=== PATIENT | male | born 1975 | race Caucasian/White ===

== ENCOUNTER 2019-09-14 05:45 | Emergency (ER) | payer OTHER, SELFPAY ==
[~2019-09-14] VITALS: Ht 185.4 cm; Wt 104.1 kg
[~2019-09-14 05:45] MED LIST: ATOR40TA75 PO; BRIL90TA PO; CARV6.25 PO; LOSA50TA88 PO; NITR0.4D6 TD
[2019-09-14] MEDS ORDERED: FLUTISP (06:00)
[2019-09-14] MEDS ORDERED: ALL10TAB29 (06:00)
[2019-09-14] MEDS ORDERED: METH36TA5 (06:00)
[2019-09-14] MEDS ORDERED: DOXY100C37 (06:00)
[2019-09-14] MEDS ORDERED: NITROGLYCERIN 0.4 MG SUBL TABLET SL STA (06:20)
[2019-09-14 06:28] LABS: BASO # 0.1 10^3/uL (0.0-0.2); BASO % 0.9 % (0.0-1.0); EOS # 0.3 10^3/uL (0.0-0.5); EOS % 4.3 % (0.0-3.0); HEMATOCRIT 41.4 % (42.0-52.0); HEMOGLOBIN 14.1 g/dl (13.5-17.5); LYMPH # 1.7 10^3/uL (1.5-5.0); LYMPH % 25.4 % (24.0-44.0); MEAN CORPUSCULAR HEMOGLOBIN 29.6 pg (27.0-33.0); MEAN CORPUSCULAR HGB CONC 34.1 g/dl (32.0-36.5); MEAN CORPUSCULAR VOLUME 86.8 fl (80.0-96.0); MONO # 0.6 10^3/uL (0.0-0.8); MONO % 8.9 % (0.0-5.0); NEUTROPHILS # 3.9 10^3/uL (1.5-8.5); PLATELET COUNT, AUTOMATED 174 10^3/uL (150-450); RED BLOOD COUNT 4.77 10^6/uL (4.30-6.10); WHITE BLOOD COUNT 6.5 10^3/uL (4.0-10.0)
[2019-09-14] MEDS ORDERED: NITROGLYCERIN 2% OINT 1 GM *U/D* PKT TOP ONE (06:30)
[2019-09-14] MEDS ORDERED: TICAGRELOR 90 MG TABLET (BRILINTA) PO ONE (06:30)
[2019-09-14] MEDS ORDERED: ASPIRIN 81 MG CHEW TABLET PO ONE (06:30)
[2019-09-14 06:33] VITALS: BP 137/91
[2019-09-14 06:42] LABS: INR 0.97; PROTHROMBIN TIME 12.6 SECONDS (11.8-14.0)
[2019-09-14 07:04] LABS: ALBUMIN 3.5 GM/DL (3.2-5.2); ALT/SGPT 24 U/L (12-78); BILIRUBIN,DIRECT 0.2 MG/DL (0.0-0.2); BILIRUBIN,TOTAL 1.2 MG/DL (0.2-1.0); CK-MB VALUE MASS < 1.0 NG/ML (<3.6); CPK CREATINE PHOSPHOKINASE 66 U/L (39-308); LIPASE 87 U/L (73-393); MB/CK RELATIVE INDEX 1.52 (< OR =4); TOTAL PROTEIN 6.3 GM/DL (6.4-8.2); TROPONIN I < 0.02 NG/ML (< 0.10)
[2019-09-14] MEDS ORDERED: propofoL 1,000 MG in IV 1 EA IV SCH (07:23)
[2019-09-14] MEDS ORDERED: propofoL 200 MG/20 ML VIAL IV PRN (07:30)
[2019-09-14] MEDS ORDERED: ETOMIDATE INJ 20MG/10ML VIAL IV ONE (07:30)
[2019-09-14] MEDS ORDERED: SUCCINYLCHOLINE INJ 200 MG/10 ML VIAL (J0330) IV ONE (07:30)
--- NOTE | 2019-09-14 07:30 | REP ---
Clinical: Chest pain . Comparison: 07/29/2017 . Findings: The mediastinum and cardiac silhouette are stable and within normal limits for portable technique. The lung f[place] are clear without acute consolidation, effusion, or pneumothorax. Skeletal structures are intact. Impression: No acute cardiopulmonary process appreciated. Electronically Signed by Ye Sahu MD 09/14/2019 07:21 A
[2019-09-14 11:15] VITALS: BP 113/71
[2019-09-14 11:20] LABS: CK-MB VALUE MASS < 1.0 NG/ML (<3.6); CPK CREATINE PHOSPHOKINASE 60 U/L (39-308); MB/CK RELATIVE INDEX 1.67 (< OR =4); TROPONIN I < 0.02 NG/ML (< 0.10)
--- NOTE | 2019-09-16 07:34 | ECGEPIP ---
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
--- NOTE | 2019-09-16 07:37 | ECGEPIP ---
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 Order Number: [id number] Reading MD: Ping Collins Measurements Intervals [place] Rate: 60 P: 31 AR: 174 QRS: 61 QRSD: 110 T: 53 QT: 422 QTc: 424 Interpretive Statements SINUS RHYTHM POSSIBLE EARLY REPOLARIZATION, CLINICAL CORRELATION TO EXCLUDE ISCEMIA similar to prior EKG 09/14/19 Electronically Signed on 09-16-2019 7:37:29 EST by Ping Collins
== END 2019-09-14 12:45 | disposition home or self-care (01) ==
LOC: M ED 05:45
DX: R07.89 Other chest pain (principal); I25.10 Atherosclerotic heart disease of native coronary artery without angina pectoris; I10 Essential (primary) hypertension; Z95.5 Presence of coronary angioplasty implant and graft; Z79.899 Other long term (current) drug therapy; Z88.1 Allergy status to other antibiotic agents; Z91.030 Bee allergy status

== ENCOUNTER 2025-04-12 11:46 | Emergency (ER) | payer OTHER ==
[~2025-04-12] VITALS: Ht 182.9 cm; Wt 94.0 kg
[~2025-04-12 11:46] MED LIST changes: +CETI-24; +DOXY-441; +FLUTISP; +LOSA50TA28 PO; -LOSA50TA88 PO; +METH36TA13
[2025-04-12 13:22] LABS: Trichomonas vaginalis (AMP) NOT DETECTED (NEGATIVE)
[2025-04-12 13:46] LABS: GC DNA AMPLIFICATION NEGATIVE (NEGATIVE)
[2025-04-12 14:16] VITALS: BP 125/70; TEMP 98; O2SAT 100
== END 2025-04-12 14:19 | disposition home or self-care (01) ==
LOC: M ED 11:46
DX: Z11.3 Encounter for screening for infections with a predominantly sexual mode of transmission (principal); Z79.899 Other long term (current) drug therapy; Z88.1 Allergy status to other antibiotic agents; Z91.030 Bee allergy status